=== PATIENT | male | born 1965 | race American Indian/Alaskan Native ===

== ENCOUNTER 2017-03-03 21:32 | Inpatient (IN) | payer MEDICARE ==
[2017-03-03] MEDS ORDERED: ATIVAN ONE (22:05)
[2017-03-03] MEDS ORDERED: ATIVAN IV ONE ×2 (22:08→22:12)
[2017-03-03] MEDS ORDERED: ASPIRIN PO ONE (22:09)
[2017-03-03] MEDS ORDERED: NITRO-BID 2% TP ONE (22:09)
--- NOTE | 2017-03-03 22:27 | Emergency Department Report ---
HPI - General Chief Complaint: Arrhythmia/Palpitations Time Seen by Provider: 03/03/17 22:00 - HPI HPI: Room 18 The patient is a 51-year-old male presented with a chief complaint of palpitations. The patient states approximately one hour prior to arrival he developed palpitations. The patient states the palpitations were associated with chest pain, diaphoresis and shortness of breath. Patient states he he has suffered from "palpitations" in the past which have been actually admitted to anxiety. Per EMS the patient's SVT broke spontaneously with vagal maneuvers. The patient states he still has chest pain despite resolution of palpitations and gives it a score of 5-6/10. The patient was sent from [facility] under a 1013 Location: Chest Duration: [see above] Quality: Pain Severity: 5-6/10 Modifying factors: [see above] Context: [see above] Mode of transportation: [not driving] ED Past Medical Hx - Past Medical History Previous Medical History?: Yes Hx Hypertension: Yes Hx Diabetes: Yes Additional medical history: Anxiety. Depression. Self Harm - Surgical History Past Surgical History?: Yes Additional Surgical History: stimulator lower back - Family History Family history: no significant - Social History Smoking Status: Current Every Day Smoker (1/2 pack per day) Substance Use Type: Alcohol (occasional), Marijuana, Other - Medications Home Medications: Home Medications Medication Instructions Recorded Confirmed Last Taken Type AtorvaSTATin [Lipitor] 20 mg PO QHS 03/03/17 03/03/17 03/03/17 History Doxycycline [Vibramycin] 100 mg PO DAILY 03/03/17 03/03/17 03/03/17 History Fluticasone [Flonase] 1 spray NS QDAY 03/03/17 03/03/17 03/03/17 History Hydrochlorothiazide [HCTZ] 25 mg PO QDAY 03/03/17 03/03/17 03/03/17 History Insulin NPH, Human [NovoLIN N] 100 unit SQ DAILY 03/03/17 03/03/17 03/03/17 History Lisinopril [Zestril] 20 mg PO QDAY 03/03/17 03/03/17 03/03/17 History ED Review of Systems ROS: Stated complaint: SVT Other details as noted in HPI Comment: All other systems reviewed and negative Constitutional: diaphoresis Eyes: denies: eye pain, eye discharge, vision change ENT: denies: ear pain, throat pain Respiratory: shortness of breath Cardiovascular: chest pain, palpitations Endocrine: no symptoms reported Gastrointestinal: denies: abdominal pain, nausea, diarrhea Genitourinary: denies: urgency, dysuria Musculoskeletal: back pain. denies: joint swelling, arthralgia Skin: denies: rash, lesions Neurological: denies: headache, weakness, paresthesias Psychiatric: anxiety. denies: depression Hematological/Lymphatic: denies: easy bleeding, easy bruising Physical Exam - Physical Exam Vital Signs: Vital Signs 03/03/17 03/03/17 21:40 22:06 Temperature 98.2 F Pulse Rate 65 Respiratory 18 18 Rate Blood Pressure 141/94 Blood Pressure 141/92 [Right] O2 Sat by Pulse 99 Oximetry Physical Exam: GENERAL: The patient is well-developed well-nourished male lying on stretcher not appearing to be in acute distress. [] HEENT: Normocephalic. Atraumatic. Extraocular motions are intact. Patient has moist mucous membranes. NECK: Supple. Trachea midline CHEST/LUNGS: Clear to auscultation. There is no respiratory distress noted. HEART/CARDIOVASCULAR: Regular. There is no tachycardia. There is no gallop rub or murmur. ABDOMEN: Abdomen is soft, nontender. Patient has normal bowel sounds. There is no abdominal distention. SKIN: There is no rash. There is no edema. There is no diaphoresis. Patient has jolynn in place from previous surgery on his back which appear to be clean dry and intact NEURO: The patient is awake, alert, and oriented. The patient is cooperative. The patient has normal speech MUSCULOSKELETAL: There is no evidence of acute injury. ED Course Vital Signs 03/03/17 03/03/17 21:40 22:06 Temperature 98.2 F Pulse Rate 65 Respiratory 18 18 Rate Blood Pressure 141/94 Blood Pressure 141/92 [Right] O2 Sat by Pulse 99 Oximetry ED Medical Decision Making - Lab Data Result diagrams: 03/03/17 22:07 03/03/17 22:07 Laboratory Tests 03/03/17 03/03/17 03/03/17 22:07 22:07 22:49 WBC 9.9 RBC 4.83 Hgb 13.8 Hct 41.9 MCV 87 MCH 29 MCHC 33 RDW 14.3 Plt Count 262 Lymph % (Auto) 27.2 [place] % (Auto) 8.1 H Eos % (Auto) 0.4 Baso % (Auto) 0.5 Lymph # 2.7 [place] # 0.8 Eos # 0.0 Baso # 0.0 Seg Neutrophils % 63.8 Seg Neutrophils # 6.3 PT 13.0 INR 0.94 APTT 26.9 Sodium 141 Potassium 4.3 Chloride 98.0 Carbon Dioxide 30 Anion Gap 17 BUN 27 H Creatinine 1.3 Estimated GFR > 60 BUN/Creatinine Ratio 21 Glucose 183 H POC Glucose Calcium 9.9 Total Bilirubin 0.60 AST 71 H ALT 63 H Alkaline Phosphatase 111 Total Creatine Kinase 293 H CK-MB (CK-2) 5.2 H CK-MB (CK-2) Rel Index 1.7 Troponin T < 0.010 Total Protein 7.3 Albumin 4.2 Albumin/Globulin Ratio 1.4 Urine Color Urine Turbidity Urine pH Ur Specific [place] Urine Protein Urine Glucose (UA) Urine Ketones Urine Blood Urine Nitrite Urine Bilirubin Urine Urobilinogen Ur Leukocyte Esterase Urine WBC (Auto) Urine RBC (Auto) U Epithel Cells (Auto) Hyaline Casts Urine Mucus Urine Opiates Screen Urine Methadone Screen Ur Barbiturates Screen Ur Phencyclidine Scrn Ur Amphetamines Screen U Benzodiazepines Scrn Urine Cocaine Screen U Marijuana (THC) Screen Drugs of Abuse Note 03/03/17 03/03/17 03/03/17 23:20 Unknown Unknown WBC RBC Hgb Hct MCV MCH MCHC RDW Plt Count Lymph % (Auto) [place] % (Auto) Eos % (Auto) Baso % (Auto) Lymph # [place] # Eos # Baso # Seg Neutrophils % Seg Neutrophils # PT INR APTT Sodium Potassium Chloride Carbon Dioxide Anion Gap BUN Creatinine Estimated GFR BUN/Creatinine Ratio Glucose POC Glucose 187 H Calcium Total Bilirubin AST ALT Alkaline Phosphatase Total Creatine Kinase CK-MB (CK-2) CK-MB (CK-2) Rel Index Troponin T Total Protein Albumin Albumin/Globulin Ratio Urine Color Yellow Urine Turbidity Clear Urine pH 5.0 Ur Specific [place] 1.023 Urine Protein 30 mg/dl Urine Glucose (UA) 150 Urine Ketones Neg Urine Blood Neg Urine Nitrite Neg Urine Bilirubin Neg Urine Urobilinogen 4.0 Ur Leukocyte Esterase Neg Urine WBC (Auto) < 1.0 Urine RBC (Auto) 2.0 U Epithel Cells (Auto) < 1.0 Hyaline Casts 1 Urine Mucus Few Urine Opiates Screen Presumptive negative Urine Methadone Screen Presumptive negative Ur Barbiturates Screen Presumptive negative Ur Phencyclidine Scrn Presumptive negative Ur Amphetamines Screen Presumptive negative U Benzodiazepines Scrn Presumptive positive Urine Cocaine Screen Presumptive positive U Marijuana (THC) Screen Presumptive negative Drugs of Abuse Note Disclamer - EKG Data -: EKG Interpreted by Me EKG shows normal: sinus rhythm Rate: normal - EKG Data When compared to previous EKG there are: previous EKG unavailable Interpretation: other (no ischemic changes seen) - Radiology Data Radiology results: image reviewed (chest x-ray) interpreted by me: Chest x-ray-no focal infiltrate, no pneumothorax - Differential Diagnosis SVT, ACS, pericarditis, GERD and anxiety Critical care attestation.: If time is entered above; I have spent that time in minutes in the direct care of this critically ill patient, excluding procedure time. ED Disposition Clinical Impression: Chest pain, SVT (supraventricular tachycardia), Cocaine abuse Disposition: 09 OP ADMIT IP TO THIS HOSP Is pt being admited?: Yes Does the pt Need Aspirin: Yes Condition: Fair Instructions: Chest Pain (ED) Referrals: PRIMARY CARE, [Primary Care Provider] - 3-5 Days Time of Disposition: 23:26 (hospitalist paged)
[2017-03-03 22:31] LABS: Basophils % (Auto) 0.5 % (0.0-1.8); Eosinophils % (Auto) 0.4 % (0.0-4.3); Hematocrit 41.9 % (35.5-45.6); Hemoglobin 13.8 gm/dl (11.8-15.2); Mean Corpuscular HGB Conc 33 % (32-34); Mean Corpuscular Hemoglobin 29 pg (28-32); Mean Corpuscular Volume 87 fl (84-94); Platelet Count 262 K/mm3 (140-440); Red Blood Count 4.83 M/mm3 (3.65-5.03); Red Cell Distribution Width 14.3 % (13.2-15.2); White Blood Count 9.9 K/mm3 (4.5-11.0)
[2017-03-03 22:32] LABS: Urine Drugs of Abuse Note Disclamer
[2017-03-03 22:38] LABS: Bilirubin,Urine NEG (Negative); Blood,Urine NEG (Negative); Ketones,Urine NEG (Negative); Leukocyte Esterase,Urine NEG (Negative); Mucus,Urine FEW /HPF; Nitrite,Urine NEG (Negative); WBC,Urine < 1.0 /HPF (0.0-6.0)
[2017-03-03 23:05] LABS: Creatine Kinase MB 5.2 ng/mL (0.0-4.0)
[2017-03-03 23:06] LABS: Alanine Aminotransferase 63 units/L (7-56); Albumin 4.2 g/dL (3.9-5); Albumin/Globulin Ratio 1.4 %; Alkaline Phosphatase 111 units/L (35-129); Anion Gap 17 mmol/L; BUN/Creatinine Ratio 21; Blood Urea Nitrogen 27 mg/dL (9-20); Calcium 9.9 mg/dL (8.4-10.2); Carbon Dioxide 30 mmol/L (22-30); Creatine Kinase 293 units/L (55-170); Glucose 183 mg/dL (75-100); Potassium 4.3 mmol/L (3.6-5.0); Sodium 141 mmol/L (137-145); Total Protein 7.3 g/dL (6.3-8.2)
[2017-03-03 23:23] LABS: INR 0.94 (0.87-1.13)
[2017-03-03 23:24] LABS: Partial Thromboplastin Time 26.9 Sec. (24.2-36.6)
--- NOTE | 2017-03-03 23:43 | History and Physical Report ---
History of Present Illness Date of examination: 03/03/17 History of present illness: 51-year-old man with a history of hypertension, diabetes, anxiety, depression was transferred from her fluids today because he was found to have tachycardia with heart rate in the 160. In the emergency room he was found to be in SVT and converted with vagal maneuver. Patient complain of chest pain associated with his palpitation, chest pain is now resolved. He is at [facility] for suicide ideation Review Of Systems: Constitutional: no weight loss Ears, eyes, nose, mouth and throat: no nasal congestion, no nasal discharge, no sinus pressure, blurry vision, diplopia Neck: No neck pain or rigidity. Cardiovascular: no orthopnea, palpitations Respiratory: No shortness of breath, cough Gastrointestinal: abdominal pain, hematochezia Genitourinary : no dysuria, frequency , hematuria Musculoskeletal: no muscle ache Integumentary: no rash, no pruritis Neurological: no parathesias, focal weakness Endocrine: no cold or heat intolerance, no polyuria or polydipsia Hematologic/Lymphatic: no easy bruising, no easy bleeding, no gland swelling Allergic/Immunologic: no urticaria, no angioedema. PAST MEDICAL HISTORY:hypertension, diabetes, anxiety, depression PAST SURGICAL HISTORY: Back FAILY HISTORY: Diabetes SOCIAL HISTORY: Admits to alcohol, tobacco, drug use Medications and Allergies Allergies Allergy/AdvReac Type Severity Reaction Status Date / Time No Known Allergies Allergy Unverified 03/03/17 21:44 Home Medications Medication Instructions Recorded Confirmed Last Taken Type AtorvaSTATin [Lipitor] 20 mg PO QHS 03/03/17 03/03/17 03/03/17 History Doxycycline [Vibramycin] 100 mg PO DAILY 03/03/17 03/03/17 03/03/17 History Fluticasone [Flonase] 1 spray NS QDAY 03/03/17 03/03/17 03/03/17 History Hydrochlorothiazide [HCTZ] 25 mg PO QDAY 03/03/17 03/03/17 03/03/17 History Insulin NPH, Human [NovoLIN N] 100 unit SQ DAILY 03/03/17 03/03/17 03/03/17 History Lisinopril [Zestril] 20 mg PO QDAY 03/03/17 03/03/17 03/03/17 History Exam - Physical Exam Narrative exam: Gen. appearance: Patient lying in bed in no acute distress HEENT: Normocephalic/atraumatic, pupils equal round reactive to light, extra alkaline movement intact, no scleral icterus, no JVD or thyromegaly or nodule, neck is supple, mucous membrane moist, no erythema or exudate Heart: S1-S2, regular rate and rhythm Lungs: Clear to auscultation bilateral breathing comfortable Abdomen: Positive bowel sounds, nontender, nondistended, no organomegaly Extremities: No edema, cyanosis, clubbing Neuro:: Oriented 3 , cranial nerves II-12 intact, speech, motor intact Skin: No rash, nodules, warm dry - Constitutional Vitals: Temp Pulse Resp BP Pulse Ox 98.2 F 59 L 13 119/66 99 03/03/17 21:40 03/03/17 23:15 03/03/17 23:15 03/03/17 23:15 03/03/17 23:15 Results - Labs CBC & Chem 7: 03/03/17 22:07 03/03/17 22:07 Labs: Abnormal lab results 03/03/17 03/03/17 03/03/17 Range/Units 22:07 22:07 23:20 [place] % (Auto) 8.1 H (0.0-7.3) % BUN 27 H (9-20) mg/dL Glucose 183 H (75-100) mg/dL POC Glucose 187 H (70-105) AST 71 H (5-40) units/L ALT 63 H (7-56) units/L Total Creatine Kinase 293 H (55-170) units/L CK-MB (CK-2) 5.2 H (0.0-4.0) ng/mL - Imaging and Cardiology EKG: image reviewed Chest x-ray: image reviewed Assessment and Plan Assessment SVT associated with chest pain Side ideation Hypertension Diabetes Anxiety Depression Plan Admit to medicine Check cardiac enzymes, consult cardiology Check fingersticks and initiate insulin sliding scale Continue appropriate outpatient medication DVT prophylaxis
[2017-03-04] MEDS ORDERED: TYLENOL PO PRN (00:47)
[2017-03-04] MEDS ORDERED: ZOFRAN IV PRN (00:47)
[2017-03-04] MEDS ORDERED: MILK OF MAGNESIA PO PRN (00:47)
[2017-03-04] MEDS ORDERED: DULCOLAX PR PRN (00:47)
[2017-03-04] MEDS ORDERED: D50W (25GM) Syringe IV PRN (00:53)
[2017-03-04] MEDS ORDERED: NACL 0.9% 1000 ML 1,000 ML IV SCH (01:00)
[2017-03-04 01:45] LABS: Creatine Kinase MB 4.7 ng/mL (0.0-4.0)
[2017-03-04 01:48] LABS: Creatine Kinase 256 units/L (55-170)
[2017-03-04 07:06] LABS: Creatine Kinase MB 4.3 ng/mL (0.0-4.0)
[2017-03-04 07:08] LABS: Creatine Kinase 223 units/L (55-170)
--- NOTE | 2017-03-04 07:13 | XRay Report ---
Single view chest: History: Dysrhythmia. Findings: Again many. Trachea is midline. No consolidation, pneumothorax or pleural effusion. Impression: No acute cardiopulmonary findings.
[2017-03-04] MEDS: NOVOLOG SUB-Q SCH ×4 (10:16→22:30)
[2017-03-04] MEDS: PERCOCET 5/325 PO PRN ×3 (10:25→20:17)
[2017-03-04] MEDS: HCTZ PO SCH (10:26)
[2017-03-04] MEDS: VIBRAMYCIN PO SCH (10:26)
[2017-03-04] MEDS: FLONASE NS SCH ×2 (10:27→10:28)
[2017-03-04] MEDS: LOVENOX SUB-Q SCH (10:27)
[2017-03-04] MEDS: ZESTRIL PO SCH (10:28)
--- NOTE | 2017-03-04 11:51 | Consultation ---
History of Present Illness Consult date: 03/04/17 Requesting physician: GAIL SETH Consult reason: chest pain, other (SVT) History of present illness: The patient is a 51-year-old male with a past medical history significant for HTN, DM, HLP, palpitations, depression/suicidal ideation and anxiety. He is previously unknown to our service. He presented with a chief complaint of palpitations. The patient states approximately one hour prior to arrival he developed palpitations. The patient states the palpitations were associated with chest pain, diaphoresis and shortness of breath. Patient states he he has suffered from "palpitations" in the past which have been related to "anxiety" and "anxiety attacks". The pt was noted to be in SVT, HR 170s, upon EMS arrival. Per EMS the patient's SVT broke spontaneously with vagal maneuvers. The patient was sent from [facility] under a 1013. On evaluation, the pt denies any complaints and remains in SR. Past History Past Medical History: diabetes, hypertension, hyperlipidemia, other (SVT) Past Surgical History: Other (recent TENS unit removal from left flank) Social history: smoking. denies: alcohol abuse, prescription drug abuse Medications and Allergies Allergies Allergy/AdvReac Type Severity Reaction Status Date / Time No Known Allergies Allergy Unverified 03/03/17 21:44 Home Medications Medication Instructions Recorded Confirmed Last Taken Type AtorvaSTATin [Lipitor] 20 mg PO QHS 03/03/17 03/03/17 03/03/17 History Doxycycline [Vibramycin] 100 mg PO DAILY 03/03/17 03/03/17 03/03/17 History Fluticasone [Flonase] 1 spray NS QDAY 03/03/17 03/03/17 03/03/17 History Hydrochlorothiazide [HCTZ] 25 mg PO QDAY 03/03/17 03/03/17 03/03/17 History Insulin NPH, Human [NovoLIN N] 100 unit SQ DAILY 03/03/17 03/03/17 03/03/17 History Lisinopril [Zestril] 20 mg PO QDAY 03/03/17 03/03/17 03/03/17 History Active Meds: Active Medications Acetaminophen (Tylenol) 650 mg PO Q4H PRN PRN Reason: Pain MILD(1-3)/Fever >100.5/URIOSTEGUI Atorvastatin Calcium (Lipitor) 20 mg PO QHS [facility] Bisacodyl (Dulcolax) 10 mg AL QDAY PRN PRN Reason: Constipation unrelieved by MOM Dextrose (D50w (25gm) Syringe) 50 ml IV PRN PRN PRN Reason: Hypoglycemia Doxycycline Hyclate (Vibramycin) 100 mg PO DAILY [facility] Last Admin: 03/04/17 10:26 Dose: 100 mg Enoxaparin Sodium (Lovenox) 40 mg SUB-Q QDAY [facility] Last Admin: 03/04/17 10:27 Dose: 40 mg Fluticasone Propionate (Flonase) 50 mcg NS QDAY [facility] Last Admin: 03/04/17 10:28 Dose: Not Given Hydrochlorothiazide (Hctz) 25 mg PO QDAY [facility] Last Admin: 03/04/17 10:26 Dose: 25 mg Sodium Chloride (Nacl 0.9% 1000 Ml) 1,000 mls @ 100 mls/hr IV DIRECT [facility] Influenza Virus Vaccine Quadrival (Fluarix Quad [id number](36 Mos+)) 0.5 ml IM .ONCE ONE Stop: 03/04/17 12:01 Insulin Aspart (Novolog) 0 units SUB-Q ACHS [facility] PRN Reason: Protocol Last Admin: 03/04/17 10:16 Dose: Not Given Lisinopril (Zestril) 20 mg PO QDAY [facility] Last Admin: 03/04/17 10:28 Dose: Not Given Magnesium Hydroxide (Milk Of Magnesia) 30 ml PO Q4H PRN PRN Reason: Constipation Ondansetron HCl (Zofran) 4 mg IV Q8H PRN PRN Reason: N/V unrelieved by Reglan Oxycodone/Acetaminophen (Percocet 5/325) 1 tab PO Q6H PRN PRN Reason: Pain, Moderate (4-6) Last Admin: 03/04/17 10:25 Dose: 1 tab Pneumococcal Polyvalent Vaccine (Pneumovax 23) 0.5 ml IM .ONCE ONE Stop: 03/04/17 12:01 Review of Systems Constitutional: no weight loss, no weight gain, no fever, no chills, no sweats Ears, nose, mouth and throat: no ear pain, no nose pain, no sinus pressure, no sinus pain Cardiovascular: chest pain, palpitations, rapid/irregular heart beat, high blood pressure, no orthopnea, no edema, no syncope, no lightheadedness, no shortness of breath, no dyspnea on exertion, no leg edema Respiratory: no cough, no shortness of breath, no dyspnea on exertion, no congestion, no wheezing, no pain on inspiration Gastrointestinal: no abdominal pain, no nausea, no vomiting, no diarrhea, no constipation, no change in bowel habits Genitourinary Male: no dysuria, no hematuria, no flank pain, no discharge, no urinary frequency, no urinary hesitancy Musculoskeletal: no neck stiffness, no neck pain, no shooting arm pain, no arm numbness/tingling, no low back pain, no shooting leg pain, no leg numbness/ tingling, no redness of joints Integumentary: no rash, no pruritis, no redness, no sores, no wounds Neurological: no head injury, no paralysis, no weakness, no parathesias, no numbness, no tingling, no seizures, no syncope Psychiatric: anxiety, depression Endocrine: no cold intolerance, no heat intolerance Hematologic/Lymphatic: no easy bruising, no easy bleeding Allergic/Immunologic: no urticaria, no wheezing, no persistent infections Physical Examination Vital Signs Temp Pulse Resp BP Pulse Ox 98.2 F 65 18 141/92 99 03/03/17 21:40 03/03/17 21:40 03/03/17 21:40 03/03/17 21:40 03/03/17 21:40 General appearance: no acute distress HEENT: Positive: PERRL, Normocephaly, Mucus Membranes Moist Neck: Positive: neck supple, trachea midline Cardiac: Positive: Reg Rate and Rhythm, S1/S2 Lungs: Positive: clear to auscultation Neuro: Positive: Grossly Intact Abdomen: Positive: Unremarkable, Soft, Active Bowel Sounds. Negative: Tender Skin: Positive: Clear, Other (left flank surgical site with jolynn in place). Negative: Rash Musculoskeletal: No Fluid Collection, No Pain, Normal Range of Motion Extremities: Absent: edema Results 03/03/17 22:07 03/03/17 22:07 Cardiac Enzymes 03/04/17 03/04/17 Range/Units 01:06 05:58 CK-MB (CK-2) 4.7 H 4.3 H (0.0-4.0) ng/mL - Imaging and Cardiology Echo: pending EKG: image reviewed EKG interpretations - Telemetry EKG Rhythm: Sinus Rhythm - EKG Sinus rhythms and dysrhythmias: sinus rhythm Assessment and Plan Assessment: Paroxysmal SVT --> SR; troponins negative for AMI; ECG following conversion with NAF; thyroid panel WNL; electrolytes WNL HTN HLP DM Tobacco use - cessation encouraged Cocaine use Anxiety / depression / suicidal ideation - pt is on 1013 Plan: Obtain echo. Toxicology panel positive for cocaine. Cessation encouraged. Initiate PO cardizem. Avoid BB in setting of cocaine use as unppposed alpha stimulation is a concern. Pt reports recent LHC with "normal arteries" at [facility]. Will attempt to obtain medical records. Assessment and plan reviewed with pt at bedside. The patient has been seen in conjunction with Dr. Stewart who agrees with the assessment and plan of care.
[2017-03-04] MEDS ORDERED: Fluarix Quad 2017-2018(36 MOS+) IM ONE (12:00)
[2017-03-04] MEDS ORDERED: PNEUMOVAX 23 IM ONE (12:00)
[2017-03-04] MEDS: ATIVAN PO PRN ×2 (12:14→20:17)
[2017-03-04] MEDS: HABITROL TD SCH (12:33)
[2017-03-04] MEDS ORDERED: LOPRESSOR PO SCH (13:00)
--- NOTE | 2017-03-04 14:08 | Progress Note ---
Assessment and Plan Assessment and plan: 51-year-old -[place] man with past medical history significant for anxiety, hypertension, hyperlipidemia, diabetes mellitus presented to the emergency department complaining of palpitations and chest pain associated with diaphoresis. In the emergency department patient was having SVT with heart rate of 170's and broke spontaneously with vagal maneuver. SVT, chest pain to rule out ACS - Patient is started on by mouth Cardizem, rate controlled - Troponins were negative, EKG normal sinus rhythm - Cardiology consulted and recommended to get echo - Patient has recent cardiac cath at [facility] and will get records Depression/suicidal ideation - Mental health consulted, patient is on 1013 Diabetes mellitus -Patient is on sliding scale insulin - We will adjust insulin as needed Hypertension - Continue home medications Disposition - Discharge back to [facility] once stable History Interval history: Patient was seen and evaluated this morning, he denied suicidal ideation. Patient complains chronic lower back pain, left-sided chest pain. No shortness of breath. Hospitalist Physical - Physical exam Narrative exam: Not in cardiopulmonary distress. The patient appeared well nourished and normally developed. Vital signs as documented. Head exam is unremarkable. No scleral icterus . Neck is without jugular venous distension, thyromegaly, or carotid bruits. Lungs are clear to auscultation. Cardiac exam reveals regular rate and Rhythm. Abdominal exam reveals normal bowel sounds, no masses. Extremities are nonedematous and both femoral and pedal pulses are normal. [employer]: Alert and oriented 3. - Constitutional Vitals: Temp Pulse Resp BP Pulse Ox 98.6 F 60 18 120/80 100 03/04/17 13:40 03/04/17 13:40 03/04/17 13:40 03/04/17 13:40 03/04/17 13:40 General appearance: Present: no acute distress Results - Labs CBC & Chem 7: 03/03/17 22:07 03/03/17 22:07 Labs: Laboratory Last Values WBC 9.9 K/mm3 (4.5-11.0) 03/03/17 22:07 RBC 4.83 M/mm3 (3.65-5.03) 03/03/17 22:07 Hgb 13.8 gm/dl (11.8-15.2) 03/03/17 22:07 Hct 41.9 % (35.5-45.6) 03/03/17 22:07 MCV 87 fl (84-94) 03/03/17 22:07 MCH 29 pg (28-32) 03/03/17 22:07 MCHC 33 % (32-34) 03/03/17 22:07 RDW 14.3 % (13.2-15.2) 03/03/17 22:07 Plt Count 262 K/mm3 (140-440) 03/03/17 22:07 Lymph % (Auto) 27.2 % (13.4-35.0) 03/03/17 22:07 [place] % (Auto) 8.1 % (0.0-7.3) H 03/03/17 22:07 Eos % (Auto) 0.4 % (0.0-4.3) 03/03/17 22:07 Baso % (Auto) 0.5 % (0.0-1.8) 03/03/17 22:07 Lymph # 2.7 K/mm3 (1.2-5.4) 03/03/17 22:07 [place] # 0.8 K/mm3 (0.0-0.8) 03/03/17 22:07 Eos # 0.0 K/mm3 (0.0-0.4) 03/03/17 22:07 Baso # 0.0 K/mm3 (0.0-0.1) 03/03/17 22:07 Seg Neutrophils % 63.8 % (40.0-70.0) 03/03/17 22:07 Seg Neutrophils # 6.3 K/mm3 (1.8-7.7) 03/03/17 22:07 PT 13.0 Sec. (12.2-14.9) 03/03/17 22:49 INR 0.94 (0.87-1.13) 03/03/17 22:49 APTT 26.9 Sec. (24.2-36.6) 03/03/17 22:49 Sodium 141 mmol/L (137-145) 03/03/17 22:07 Potassium 4.3 mmol/L (3.6-5.0) 03/03/17 22:07 Chloride 98.0 mmol/L (98-107) 03/03/17 22:07 Carbon Dioxide 30 mmol/L (22-30) 03/03/17 22:07 Anion Gap 17 mmol/L 03/03/17 22:07 BUN 27 mg/dL (9-20) H 03/03/17 22:07 Creatinine 1.3 mg/dL (0.8-1.5) 03/03/17 22:07 Estimated GFR > 60 ml/min 03/03/17 22:07 BUN/Creatinine Ratio 21 % 03/03/17 22:07 Glucose 183 mg/dL (75-100) H 03/03/17 22:07 POC Glucose 109 (70-105) H 03/04/17 10:17 Calcium 9.9 mg/dL (8.4-10.2) 03/03/17 22:07 Magnesium 1.70 mg/dL (1.7-2.3) 03/03/17 22:49 Total Bilirubin 0.60 mg/dL (0.1-1.2) 03/03/17 22:07 AST 71 units/L (5-40) H 03/03/17 22:07 ALT 63 units/L (7-56) H 03/03/17 22:07 Alkaline Phosphatase 111 units/L (35-129) 03/03/17 22:07 Total Creatine Kinase 223 units/L (55-170) H 03/04/17 05:58 CK-MB (CK-2) 4.3 ng/mL (0.0-4.0) H 03/04/17 05:58 CK-MB (CK-2) Rel Index 1.9 (0-4) 03/04/17 05:58 Troponin T < 0.010 ng/mL (0.00-0.029) 03/04/17 05:58 Total Protein 7.3 g/dL (6.3-8.2) 03/03/17 22:07 Albumin 4.2 g/dL (3.9-5) 03/03/17 22:07 Albumin/Globulin Ratio 1.4 % 03/03/17 22:07 TSH 0.737 mlU/mL (0.270-4.200) 03/03/17 22:49 Free T4 1.25 ng/dL (0.76-1.46) 03/03/17 22:49 Urine Color Yellow (Yellow) 03/03/17 Unknown Urine Turbidity Clear (Clear) 03/03/17 Unknown Urine pH 5.0 (5.0-7.0) 03/03/17 Unknown Ur Specific [place] 1.023 (1.003-1.030) 03/03/17 Unknown Urine Protein 30 mg/dl mg/dL (Negative) 03/03/17 Unknown Urine Glucose (UA) 150 mg/dL (Negative) 03/03/17 Unknown Urine Ketones Neg mg/dL (Negative) 03/03/17 Unknown Urine Blood Neg (Negative) 03/03/17 Unknown Urine Nitrite Neg (Negative) 03/03/17 Unknown Urine Bilirubin Neg (Negative) 03/03/17 Unknown Urine Urobilinogen 4.0 mg/dL (<2.0) 03/03/17 Unknown Ur Leukocyte Esterase Neg (Negative) 03/03/17 Unknown Urine WBC (Auto) < 1.0 /HPF (0.0-6.0) 03/03/17 Unknown Urine RBC (Auto) 2.0 /HPF (0.0-6.0) 03/03/17 Unknown U Epithel Cells (Auto) < 1.0 /HPF (0-13.0) 03/03/17 Unknown Hyaline Casts 1 /LPF 03/03/17 Unknown Urine Mucus Few /HPF 03/03/17 Unknown Urine Opiates Screen Presumptive negative 03/03/17 Unknown Urine Methadone Screen Presumptive negative 03/03/17 Unknown Ur Barbiturates Screen Presumptive negative 03/03/17 Unknown Ur Phencyclidine Scrn Presumptive negative 03/03/17 Unknown Ur Amphetamines Screen Presumptive negative 03/03/17 Unknown U Benzodiazepines Scrn Presumptive positive 03/03/17 Unknown Urine Cocaine Screen Presumptive positive 03/03/17 Unknown U Marijuana (THC) Screen Presumptive negative 03/03/17 Unknown Drugs of Abuse Note Disclamer 03/03/17 Unknown
[2017-03-04] MEDS: CARDIZEM PO SCH ×3 (16:48→22:30)
[2017-03-05] MEDS ORDERED: AMBIEN PO PRN (01:25)
[2017-03-05] MEDS: PERCOCET 5/325 PO PRN ×2 (05:59→12:29)
[2017-03-05] MEDS: ATIVAN PO PRN (06:01)
[2017-03-05 06:35] LABS: Basophils % (Auto) 0.6 % (0.0-1.8); Eosinophils % (Auto) 0.8 % (0.0-4.3); Hematocrit 37.9 % (35.5-45.6); Hemoglobin 12.8 gm/dl (11.8-15.2); Mean Corpuscular HGB Conc 34 % (32-34); Mean Corpuscular Hemoglobin 29 pg (28-32); Mean Corpuscular Volume 87 fl (84-94); Platelet Count 217 K/mm3 (140-440); Red Blood Count 4.37 M/mm3 (3.65-5.03); Red Cell Distribution Width 14.3 % (13.2-15.2)
[2017-03-05 06:51] LABS: Anion Gap 16 mmol/L; Calcium 8.9 mg/dL (8.4-10.2); Carbon Dioxide 29 mmol/L (22-30); Chloride 103.2 mmol/L (98-107); Glucose 138 mg/dL (75-100); Potassium 3.9 mmol/L (3.6-5.0); Sodium 144 mmol/L (137-145)
[2017-03-05 07:00] LABS: BUN/Creatinine Ratio 16; Blood Urea Nitrogen 16 mg/dL (9-20)
[2017-03-05] MEDS: NOVOLOG SUB-Q SCH ×2 (08:34→11:11)
[2017-03-05] MEDS: HCTZ PO SCH (09:16)
[2017-03-05] MEDS: VIBRAMYCIN PO SCH (09:17)
[2017-03-05] MEDS: CARDIZEM PO SCH (09:17)
[2017-03-05] MEDS: LOVENOX SUB-Q SCH (09:17)
[2017-03-05] MEDS: FLONASE NS SCH (09:18)
[2017-03-05] MEDS: HABITROL TD SCH (09:18)
[2017-03-05] MEDS: ZESTRIL PO SCH (09:18)
--- NOTE | 2017-03-05 10:31 | Progress Note ---
Assessment and Plan Assessment and plan: 51-year-old -[place] man with past medical history significant for anxiety, hypertension, hyperlipidemia, diabetes mellitus presented to the emergency department complaining of palpitations and chest pain associated with diaphoresis. In the emergency department patient was having SVT with heart rate of 170's and broke spontaneously with vagal maneuver. SVT, chest pain to rule out ACS - Patient is started on by mouth Cardizem, rate controlled - Troponins were negative, EKG normal sinus rhythm - Cardiology consulted and recommended to get echo - Patient has recent cardiac cath at [facility] and will get records Depression/suicidal ideation - Mental health consulted, patient is on 1013 Diabetes mellitus -Patient is on sliding scale insulin - We will adjust insulin as needed Hypertension - Continue home medications Disposition - Discharge back to [facility] once stable Hospitalist Physical - Constitutional Vitals: Temp Pulse Resp BP Pulse Ox 98.0 F 64 20 131/90 98 03/05/17 08:50 03/05/17 10:00 03/05/17 10:00 03/05/17 08:50 03/05/17 10:18 General appearance: Present: no acute distress Results - Labs CBC & Chem 7: 03/05/17 05:53 03/05/17 05:53 Labs: Laboratory Last Values WBC 10.0 K/mm3 (4.5-11.0) 03/05/17 05:53 RBC 4.37 M/mm3 (3.65-5.03) 03/05/17 05:53 Hgb 12.8 gm/dl (11.8-15.2) 03/05/17 05:53 Hct 37.9 % (35.5-45.6) 03/05/17 05:53 MCV 87 fl (84-94) 03/05/17 05:53 MCH 29 pg (28-32) 03/05/17 05:53 MCHC 34 % (32-34) 03/05/17 05:53 RDW 14.3 % (13.2-15.2) 03/05/17 05:53 Plt Count 217 K/mm3 (140-440) 03/05/17 05:53 Lymph % (Auto) 29.1 % (13.4-35.0) 03/05/17 05:53 [place] % (Auto) 8.2 % (0.0-7.3) H 03/05/17 05:53 Eos % (Auto) 0.8 % (0.0-4.3) 03/05/17 05:53 Baso % (Auto) 0.6 % (0.0-1.8) 03/05/17 05:53 Lymph # 2.9 K/mm3 (1.2-5.4) 03/05/17 05:53 [place] # 0.8 K/mm3 (0.0-0.8) 03/05/17 05:53 Eos # 0.1 K/mm3 (0.0-0.4) 03/05/17 05:53 Baso # 0.1 K/mm3 (0.0-0.1) 03/05/17 05:53 Seg Neutrophils % 61.3 % (40.0-70.0) 03/05/17 05:53 Seg Neutrophils # 6.1 K/mm3 (1.8-7.7) 03/05/17 05:53 PT 13.0 Sec. (12.2-14.9) 03/03/17 22:49 INR 0.94 (0.87-1.13) 03/03/17 22:49 APTT 26.9 Sec. (24.2-36.6) 03/03/17 22:49 Sodium 144 mmol/L (137-145) 03/05/17 05:53 Potassium 3.9 mmol/L (3.6-5.0) 03/05/17 05:53 Chloride 103.2 mmol/L (98-107) 03/05/17 05:53 Carbon Dioxide 29 mmol/L (22-30) 03/05/17 05:53 Anion Gap 16 mmol/L 03/05/17 05:53 BUN 16 mg/dL (9-20) 03/05/17 05:53 Creatinine 1.0 mg/dL (0.8-1.5) 03/05/17 05:53 Estimated GFR > 60 ml/min 03/05/17 05:53 BUN/Creatinine Ratio 16 % 03/05/17 05:53 Glucose 138 mg/dL (75-100) H 03/05/17 05:53 POC Glucose 186 (70-105) H 03/05/17 08:59 Calcium 8.9 mg/dL (8.4-10.2) 03/05/17 05:53 Magnesium 1.70 mg/dL (1.7-2.3) 03/03/17 22:49 Total Bilirubin 0.60 mg/dL (0.1-1.2) 03/03/17 22:07 AST 71 units/L (5-40) H 03/03/17 22:07 ALT 63 units/L (7-56) H 03/03/17 22:07 Alkaline Phosphatase 111 units/L (35-129) 03/03/17 22:07 Total Creatine Kinase 223 units/L (55-170) H 03/04/17 05:58 CK-MB (CK-2) 4.3 ng/mL (0.0-4.0) H 03/04/17 05:58 CK-MB (CK-2) Rel Index 1.9 (0-4) 03/04/17 05:58 Troponin T < 0.010 ng/mL (0.00-0.029) 03/04/17 05:58 Total Protein 7.3 g/dL (6.3-8.2) 03/03/17 22:07 Albumin 4.2 g/dL (3.9-5) 03/03/17 22:07 Albumin/Globulin Ratio 1.4 % 03/03/17 22:07 TSH 0.737 mlU/mL (0.270-4.200) 03/03/17 22:49 Free T4 1.25 ng/dL (0.76-1.46) 03/03/17 22:49 Urine Color Yellow (Yellow) 03/03/17 Unknown Urine Turbidity Clear (Clear) 03/03/17 Unknown Urine pH 5.0 (5.0-7.0) 03/03/17 Unknown Ur Specific [place] 1.023 (1.003-1.030) 03/03/17 Unknown Urine Protein 30 mg/dl mg/dL (Negative) 03/03/17 Unknown Urine Glucose (UA) 150 mg/dL (Negative) 03/03/17 Unknown Urine Ketones Neg mg/dL (Negative) 03/03/17 Unknown Urine Blood Neg (Negative) 03/03/17 Unknown Urine Nitrite Neg (Negative) 03/03/17 Unknown Urine Bilirubin Neg (Negative) 03/03/17 Unknown Urine Urobilinogen 4.0 mg/dL (<2.0) 03/03/17 Unknown Ur Leukocyte Esterase Neg (Negative) 03/03/17 Unknown Urine WBC (Auto) < 1.0 /HPF (0.0-6.0) 03/03/17 Unknown Urine RBC (Auto) 2.0 /HPF (0.0-6.0) 03/03/17 Unknown U Epithel Cells (Auto) < 1.0 /HPF (0-13.0) 03/03/17 Unknown Hyaline Casts 1 /LPF 03/03/17 Unknown Urine Mucus Few /HPF 03/03/17 Unknown Urine Opiates Screen Presumptive negative 03/03/17 Unknown Urine Methadone Screen Presumptive negative 03/03/17 Unknown Ur Barbiturates Screen Presumptive negative 03/03/17 Unknown Ur Phencyclidine Scrn Presumptive negative 03/03/17 Unknown Ur Amphetamines Screen Presumptive negative 03/03/17 Unknown U Benzodiazepines Scrn Presumptive positive 03/03/17 Unknown Urine Cocaine Screen Presumptive positive 03/03/17 Unknown U Marijuana (THC) Screen Presumptive negative 03/03/17 Unknown Drugs of Abuse Note Disclamer 03/03/17 Unknown
--- NOTE | 2017-03-05 11:34 | Progress Note ---
Assessment and Plan Assessment: Paroxysmal SVT --> SR; troponins negative for AMI; ECG following conversion with NAF; thyroid panel WNL; electrolytes WNL HTN HLP DM Tobacco use - cessation encouraged Cocaine use Anxiety / depression / suicidal ideation - pt is on 1013 Plan: Echo reviewed - EF 55-60%. Records from [place] reviewed - pt underwent LHC in 11/2010 which showed mild luminal irregularities, EF 50%. Toxicology panel positive for cocaine. Cessation encouraged. Cont PO cardizem. Currently stable cardiac status. Pt may discharge home from cardiology standpoint. Recommend follow up in our office with Monique Wagner NP, within 1-2 weeks of hospital discharge ([phone]). Assessment and plan reviewed with pt at bedside. The patient has been seen in conjunction with Dr. Stewart who agrees with the assessment and plan of care. Subjective Date of service: 03/05/17 Principal diagnosis: SVT Interval history: Pt ambulating around room without difficulty. VSS. remained in SR overnight with no arrhythmias noted. Pt states he is ready to go home. Objective Last Vital Signs Temp 98.0 F 03/05/17 08:50 Pulse 64 03/05/17 10:00 Resp 20 03/05/17 10:00 BP 131/90 03/05/17 08:50 Pulse Ox 98 03/05/17 10:18 - Physical Examination HEENT: Positive: PERRL, Normocephaly, Mucus Membranes Moist Neck: Positive: neck supple, trachea midline Cardiac: Positive: Reg Rate and Rhythm, S1/S2 Lungs: Positive: clear to auscultation Neuro: Positive: Grossly Intact Abdomen: Positive: Unremarkable, Soft, Active Bowel Sounds. Negative: Tender Skin: Positive: Clear, Other (left flank surgical site with jolynn in place). Negative: Rash Musculoskeletal: No Fluid Collection, No Pain, Normal Range of Motion Extremities: Absent: edema - Labs and Meds CBC 03/05/17 Range/Units 05:53 WBC 10.0 (4.5-11.0) K/mm3 RBC 4.37 (3.65-5.03) M/mm3 Hgb 12.8 (11.8-15.2) gm/dl Hct 37.9 (35.5-45.6) % Plt Count 217 (140-440) K/mm3 Lymph # 2.9 (1.2-5.4) K/mm3 [place] # 0.8 (0.0-0.8) K/mm3 Eos # 0.1 (0.0-0.4) K/mm3 Baso # 0.1 (0.0-0.1) K/mm3 Comprehensive Metabolic Panel 03/05/17 Range/Units 05:53 Sodium 144 (137-145) mmol/L Potassium 3.9 (3.6-5.0) mmol/L Chloride 103.2 (98-107) mmol/L Carbon Dioxide 29 (22-30) mmol/L BUN 16 (9-20) mg/dL Creatinine 1.0 (0.8-1.5) mg/dL Glucose 138 H (75-100) mg/dL Calcium 8.9 (8.4-10.2) mg/dL - Imaging and Cardiology EKG: image reviewed Echo: pending - EKG Sinus rhythms and dysrhythmias: sinus rhythm
--- NOTE | 2017-03-05 15:25 | Query- Chest Pain ---
Dear Corry Date: 03/05/17 Network Contractor/CDS:___[employer] Phone#:___[phone] Exercise your independent professional judgment when responding to query. Questions asked do not imply a particular answer is desired or expected. We greatly appreciate your clarification on this issue. Clinical Documentation States: 51 year old male was admitted on 03/03/17 The progress note (Dr. Wheatley 03/05/17) states " presented to the emergency department complaining of palpitations and chest pain associated with diaphoresis SVT, chest pain to rule out ACS - Patient is started on by mouth Cardizem, rate controlled - Troponins were negative, EKG normal sinus rhythm - Cardiology consulted and recommended to get echo - Patient has recent cardiac cath at [facility] and will get records " The cardiology progress note ( Janay Spangler 03/05/17) states " Paroxysmal SVT -- > SR; troponins negative for AMI; ECG following conversion with NAF; thyroid panel WNL; electrolytes WNL Cocaine use Anxiety / depression / suicidal ideation - pt is on 1013 Echo reviewed - EF 55-60%. Records from [place] reviewed - pt underwent LHC in 11/2010 which showed mild luminal irregularities, EF 50%. Toxicology panel positive for cocaine " Please document the etiology of Chest Pain: [ ] Myocardial Infarction [ ] Pneumonia [ ] Mediastinitis [ x] Costochondritis [ ] Pulmonary Embolism [ ] Coronary Artery Disease [ ] GERD [ ] Other: [ ] Comment/Explanation: Present on Admission: [ x] Yes (Y) [ ] Clinically undeterminable (W) [ ] No(N) Please document response in your Progress Notes and/or Discharge Summary and indicate if the condition was present on admission. MTDD
--- NOTE | 2017-03-05 15:26 | Discharge Summary ---
Providers - Providers Date of Admission: 03/03/17 23:50 Attending physician: ARLETH CLARKE MD 03/04/17 00:47 Consult to Physician [CONS] Routine Consulting Provider: AZ RUIZ Reason For Exam: svt/cp Place consult to:: [facility] Notified:: rich Was contact made?: Yes Time called:: 08:43 03/04/17 14:31 Consult to Mental Health [CONS] Routine Reason For Exam: 1013 Place consult to:: ezequiel Notified:: ezequiel Primary care physician: TEA FERRO Hospitalization Condition: Fair Hospital course: 51-year-old -[place] man with past medical history significant for anxiety, hypertension, hyperlipidemia, diabetes mellitus presented to the emergency department complaining of palpitations and chest pain associated with diaphoresis. In the emergency department patient was having SVT with heart rate of 170's and broke spontaneously with vagal maneuver. SVT, chest pain to rule out ACS - Patient is started on by mouth Cardizem, rate controlled - Troponins were negative, EKG normal sinus rhythm - Cardiology consulted and recommended to get echo - Patient has recent cardiac cath at [facility] and will get records Depression/suicidal ideation - Mental health consulted, patient is on 1013 Diabetes mellitus -Patient is on sliding scale insulin - We will adjust insulin as needed Hypertension - Continue home medications Disposition - Discharge back to [facility] once stable Disposition: DC-01 TO HOME OR SELFCARE Time spent for discharge: 33 minutes Core Measure Documentation - Palliative Care Palliative Care/ Comfort Measures: Not Applicable - Core Measures Any of the following diagnoses?: none Exam - Constitutional Vitals: Temp Pulse Resp BP Pulse Ox 98.3 F 64 20 127/76 98 03/05/17 12:25 03/05/17 10:00 03/05/17 12:29 03/05/17 12:25 03/05/17 10:18 General appearance: Present: no acute distress, well-nourished - EENT Eyes: Present: PERRL ENT: hearing intact, clear oral mucosa - Neck Neck: Present: supple, normal ROM - Respiratory Respiratory effort: normal Respiratory: bilateral: CTA - Cardiovascular Heart Sounds: Present: S1 & S2. Absent: rub, click - Extremities Extremities: pulses symmetrical, No edema Peripheral Pulses: within normal limits - Abdominal General gastrointestinal: Present: soft, non-tender, non-distended, normal bowel sounds Male genitourinary: Present: normal - Integumentary Integumentary: Present: clear, warm, dry - Musculoskeletal Musculoskeletal: gait normal, strength equal bilaterally - Psychiatric Psychiatric: appropriate mood/affect, intact judgment & insight - Neurologic Neurologic: CNII-XII intact, moves all extremities Plan Follow up with: PRIMARY CARE,MD [Referring] - 3-5 Days Prescriptions: AtorvaSTATin [Lipitor] 20 mg PO QHS #30 tablet Diltiazem [Cardizem] 30 mg PO BID #60 tablet Fluticasone [Flonase] 1 spray NS QDAY #1 bottle Hydrochlorothiazide [HCTZ] 25 mg PO QDAY #30 tablet Lisinopril [Zestril TAB] 20 mg PO QDAY #30 tablet Nicotine [Habitrol] 21 mg TD QDAY #30 patch
[2017-03-05 15:49] VITALS: BP 119/77
--- NOTE | 2017-03-05 16:12 | Consultation ---
History of Present Illness - Reason for Consult Consult date: 03/05/17 Reason for consult: Mental Health Evaluation Requesting physician: ROCK BLAS - Chief Complaint Chief complaint: "I was upset with my " - History of Present Psychiatric Illness The patient is a 51-year-old male presented with a chief complaint of palpitations. Today patient is calm and cooperative during the assessment. He stated that he was brought to [employer] because he stated, "I want it all to be over." He stated that he got into a argument with his and he left the house. He stated that he had been drinking prior to making the statement about wanting it all to be over. He stated that he was upset at the time and didn't want to "." Per his Margi Palafox, she stated that he was upset at the time and don't believe that he wanted to kill himself. She stated that the patient does not have a hx of suicidal attempts in the past. The patient stated that he was dx with anxiety by his PCP. He stated that he take Xanax. He denies SI/HI's, AVH's, and depression. He denies sleep disturbance and a poor appetite. He denies an alcohol addition, but admit to using recreational drugs. Patient positive for cocaine. He stated that his PCP manage his treatment for his Anxiety DO. He stated that he would like a outpatient rehab services for the recreational drug use. Medications and Allergies Allergies Allergy/AdvReac Type Severity Reaction Status Date / Time No Known Allergies Allergy Unverified 03/03/17 21:44 Home Medications Medication Instructions Recorded Confirmed Last Taken Type AtorvaSTATin [Lipitor] 20 mg PO QHS #30 tablet 03/05/17 Unknown Rx Diltiazem [Cardizem] 30 mg PO BID #60 tablet 03/05/17 Unknown Rx Fluticasone [Flonase] 1 spray NS QDAY #1 bottle 03/05/17 Unknown Rx Hydrochlorothiazide [HCTZ] 25 mg PO QDAY #30 tablet 03/05/17 Unknown Rx Insulin Regular, Human [HumuLIN R] 0 units SUB-Q Q6HR #1 vial 03/05/17 Unknown Rx Lisinopril [Zestril TAB] 20 mg PO QDAY #30 tablet 03/05/17 Unknown Rx Nicotine [Habitrol] 21 mg TD QDAY #30 patch 03/05/17 Unknown Rx metFORMIN [Glucophage] 500 mg PO QDAY #30 tab 03/05/17 Unknown Rx Active Meds: Active Medications Acetaminophen (Tylenol) 650 mg PO Q4H PRN PRN Reason: Pain MILD(1-3)/Fever >100.5/URIOSTEGUI Atorvastatin Calcium (Lipitor) 20 mg PO QHS [facility] Last Admin: 03/04/17 22:30 Dose: Not Given Bisacodyl (Dulcolax) 10 mg OK QDAY PRN PRN Reason: Constipation unrelieved by MOM Dextrose (D50w (25gm) Syringe) 50 ml IV PRN PRN PRN Reason: Hypoglycemia Diltiazem HCl (Cardizem) 30 mg PO BID [facility] Last Admin: 03/05/17 09:17 Dose: 30 mg Doxycycline Hyclate (Vibramycin) 100 mg PO DAILY [facility] Last Admin: 03/05/17 09:17 Dose: 100 mg Enoxaparin Sodium (Lovenox) 40 mg SUB-Q QDAY [facility] Last Admin: 03/05/17 09:17 Dose: 40 mg Fluticasone Propionate (Flonase) 50 mcg NS QDAY [facility] Last Admin: 03/05/17 09:18 Dose: Not Given Hydrochlorothiazide (Hctz) 25 mg PO QDAY [facility] Last Admin: 03/05/17 09:16 Dose: 25 mg Sodium Chloride (Nacl 0.9% 1000 Ml) 1,000 mls @ 100 mls/hr IV DIRECT [facility] Insulin Aspart (Novolog) 0 units SUB-Q ACHS [facility] PRN Reason: Protocol Last Admin: 03/05/17 11:11 Dose: 3 units Lisinopril (Zestril) 20 mg PO QDAY [facility] Last Admin: 03/05/17 09:18 Dose: 20 mg Lorazepam (Ativan) 1 mg PO Q8H PRN PRN Reason: Agitation Last Admin: 03/05/17 06:01 Dose: 1 mg Magnesium Hydroxide (Milk Of Magnesia) 30 ml PO Q4H PRN PRN Reason: Constipation Nicotine (Habitrol) 21 mg TD QDAY [facility] Last Admin: 03/05/17 09:18 Dose: 21 mg Ondansetron HCl (Zofran) 4 mg IV Q8H PRN PRN Reason: N/V unrelieved by Reglan Oxycodone/Acetaminophen (Percocet 5/325) 1 tab PO Q6H PRN PRN Reason: Pain, Moderate (4-6) Last Admin: 03/05/17 12:29 Dose: 1 tab Zolpidem Tartrate (Ambien) 10 mg PO QHS PRN PRN Reason: Insomnia Last Admin: 03/05/17 02:00 Dose: 10 mg Past psychiatric history - Past Medical History Past Medical History: diabetes, hypertension Past Surgical History: Other (Back Surgery) - past Psychiatric treatment and history psychiatric treatment history: Patient stated a hx of anxiety. Denies a fam psy hx. - Social History Social history: lives with family Mental Status Exam - Vital signs Last Vital Signs Temp 98.3 F 03/05/17 15:47 Pulse 64 03/05/17 10:00 Resp 20 03/05/17 15:47 BP 119/77 03/05/17 15:47 Pulse Ox 98 03/05/17 10:18 - Exam Narrative exam: MSE: Appearance: calm, cooperative Behavior: regular eye contact Speech: regular rate and tone Mood: "better" Affect: euthymic Thought Process: linear Thought Content: denies SI/HI's and AVH's Motor Activity: ambulatory Cognition: A/O x 3 Insight: fair Judgment: fair Results Result Diagrams: 03/05/17 05:53 03/05/17 05:53 Abnormal lab results 03/04/17 03/04/17 03/05/17 Range/Units 16:49 22:50 05:53 [place] % (Auto) 8.2 H (0.0-7.3) % Glucose (75-100) mg/dL POC Glucose 171 H 146 H (70-105) 03/05/17 03/05/17 03/05/17 Range/Units 05:53 08:59 12:27 [place] % (Auto) (0.0-7.3) % Glucose 138 H (75-100) mg/dL POC Glucose 186 H 161 H (70-105) All other labs normal. Assessment and Plan Assessment and plan: Impression: Historical Dx: Anxiety DO. 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 Substance Use DO (cocaine). Possible Alcohol Use DO. Today patient is calm and cooperative during the assessment. Patient is no threat to self. DDx: R/O Mood DO Recommendation/Plan: Rescind 1013. Patient given outpatient rehab services for [facility]. Patient stated that his PCP manage his Anxiety DO along with medication management. Discussed the importance to abstain from recreational drug use and excessive alcohol consumption.
== END 2017-03-05 17:48 | disposition home or self-care (01) | DRG 206 ==
LOC: ED 21:32 → 4A 23:50
PROVIDERS: ADMIT Internal Medicine; ATTEND Internal Medicine
PROC: 3E0234Z Introduction of Serum, Toxoid and Vaccine into Muscle, Percutaneous Approach (ICD-10-PCS; principal; 2017-03-03)
DX: M94.0 Chondrocostal junction syndrome [Tietze] (principal); I47.1 Supraventricular tachycardia; I24.9 Acute ischemic heart disease, unspecified; R61 Generalized hyperhidrosis; E11.9 Type 2 diabetes mellitus without complications; I10 Essential (primary) hypertension; F32.9 Major depressive disorder, single episode, unspecified; F41.9 Anxiety disorder, unspecified; F17.210 Nicotine dependence, cigarettes, uncomplicated; F12.90 Cannabis use, unspecified, uncomplicated; E78.5 Hyperlipidemia, unspecified; F14.10 Cocaine abuse, uncomplicated; Z83.3 Family history of diabetes mellitus; Z79.4 Long term (current) use of insulin; Z79.899 Other long term (current) drug therapy; Z23 Encounter for immunization
CPT/HCPCS: 36415; 71010; 80048; 80053; 80307; 81001; 82550; 82553; 82962; 83735; 84439; 84443; 84484; 85025; 85610; 85730; 90686; 90732; 93005; 93010; 93306; 96374; 96376; 99406; A9270-GY; J1650; J2060; J7030

== ENCOUNTER 2017-04-14 10:02 | Emergency (ER) | payer MEDICARE ==
[2017-04-14 10:29] VITALS: BP 147/96
[2017-04-14] MEDS ORDERED: TORADOL IM ONE (11:40)
--- NOTE | 2017-04-14 11:51 | Emergency Department Report ---
ED Recheck HPI - General Chief Complaint: Medical Clearance Stated Complaint: NEEDS MEDICATION, HIGH BLOOD SUGAR Time Seen by Provider: 04/14/17 11:25 Source: patient Mode of arrival: Ambulatory Limitations: No Limitations - History of Present Illness Initial Comments: This is a 51-year-old male nontoxic, well nourished in appearance, no acute signs of distress presents to the ED with c/o of for medication refill and chronic intermittent back pain. Patient states he takes Lantus on a sliding scale. Patient denies any trauma to his back. Patient stated this is a chronic condition and stated "Morphine shots" is what helps him. Patient denies dysuria , polyuria, bladder or bowel instability, hematuria, fever, chills, headache, nausea, vomiting, chest pain, abdominal pain, shortness of breathe. Patient describes pain as aching with level of 8/10. Patient denies any numbness or tingling. Alex any allergies. PMH includes DM, GERD, and HTN. MD Complaint: medication refill request, other (back pain) -: year(s) Returns Today for: request for prescription Symptoms Since Prior Visit: no new symptoms Associated Symptoms: none. denies: fever, chills, chest pain, shortness of breath, rash, malaise, nasuea, abdominal pain - Related Data Previous Rx's Medication Instructions Recorded Last Taken Type AtorvaSTATin [Lipitor] 20 mg PO QHS #30 tablet 03/05/17 Unknown Rx Diltiazem [Cardizem] 30 mg PO BID #60 tablet 03/05/17 Unknown Rx Fluticasone [Flonase] 1 spray NS QDAY #1 bottle 03/05/17 Unknown Rx Hydrochlorothiazide [HCTZ] 25 mg PO QDAY #30 tablet 03/05/17 Unknown Rx Insulin Regular, Human [HumuLIN R] 0 units SUB-Q Q6HR #1 vial 03/05/17 Unknown Rx Lisinopril [Zestril TAB] 20 mg PO QDAY #30 tablet 03/05/17 Unknown Rx Nicotine [Habitrol] 21 mg TD QDAY #30 patch 03/05/17 Unknown Rx metFORMIN [Glucophage] 500 mg PO QDAY #30 tab 03/05/17 Unknown Rx Cyclobenzaprine [Flexeril] 10 mg PO BID PRN #10 tablet 04/14/17 Unknown Rx Ibuprofen [Motrin] 600 mg PO Q8H PRN #30 tablet 04/14/17 Unknown Rx Insulin Glargine [Lantus] 0 units SQ QHS #1 vial 04/14/17 Unknown Rx Allergies Allergy/AdvReac Type Severity Reaction Status Date / Time No Known Allergies Allergy Unverified 03/03/17 21:44 ED Review of Systems ROS: Stated complaint: NEEDS MEDICATION, HIGH BLOOD SUGAR Other details as noted in HPI Constitutional: denies: chills, fever Eyes: denies: eye pain, eye discharge, vision change ENT: denies: ear pain, throat pain Respiratory: denies: cough, shortness of breath, wheezing Cardiovascular: denies: chest pain, palpitations Endocrine: no symptoms reported Gastrointestinal: denies: abdominal pain, nausea, diarrhea Genitourinary: denies: urgency, dysuria Musculoskeletal: back pain. denies: joint swelling, arthralgia Skin: denies: rash, lesions Neurological: denies: headache, weakness, paresthesias Psychiatric: denies: anxiety, depression Hematological/Lymphatic: denies: easy bleeding, easy bruising ED Past Medical Hx - Past Medical History Previous Medical History?: Yes Hx Hypertension: Yes Hx Diabetes: Yes Hx GERD: Yes Additional medical history: Anxiety. Depression. Self Harm - Surgical History Past Surgical History?: Yes Additional Surgical History: stimulator lower back - Social History Smoking Status: Current Every Day Smoker Substance Use Type: Alcohol, Prescribed - Medications Home Medications: Home Medications Medication Instructions Recorded Confirmed Last Taken Type AtorvaSTATin [Lipitor] 20 mg PO QHS #30 tablet 03/05/17 Unknown Rx Diltiazem [Cardizem] 30 mg PO BID #60 tablet 03/05/17 Unknown Rx Fluticasone [Flonase] 1 spray NS QDAY #1 bottle 03/05/17 Unknown Rx Hydrochlorothiazide [HCTZ] 25 mg PO QDAY #30 tablet 03/05/17 Unknown Rx Insulin Regular, Human [HumuLIN R] 0 units SUB-Q Q6HR #1 vial 03/05/17 Unknown Rx Lisinopril [Zestril TAB] 20 mg PO QDAY #30 tablet 03/05/17 Unknown Rx Nicotine [Habitrol] 21 mg TD QDAY #30 patch 03/05/17 Unknown Rx metFORMIN [Glucophage] 500 mg PO QDAY #30 tab 03/05/17 Unknown Rx Cyclobenzaprine [Flexeril] 10 mg PO BID PRN #10 tablet 04/14/17 Unknown Rx Ibuprofen [Motrin] 600 mg PO Q8H PRN #30 tablet 04/14/17 Unknown Rx Insulin Glargine [Lantus] 0 units SQ QHS #1 vial 04/14/17 Unknown Rx ED Physical Exam - General Limitations: No Limitations General appearance: alert, in no apparent distress - Head Head exam: Present: atraumatic, normocephalic, normal inspection - Eye Eye exam: Present: normal appearance, PERRL, EOMI. Absent: scleral icterus, conjunctival injection, nystagmus, periorbital swelling, periorbital tenderness Pupils: Present: normal accommodation - ENT ENT exam: Present: normal exam, normal orophraynx, mucous membranes moist, TM's normal bilaterally, normal external ear exam - Neck Neck exam: Present: normal inspection, full ROM. Absent: tenderness, meningismus, lymphadenopathy, thyromegaly - Respiratory Respiratory exam: Present: normal lung sounds bilaterally. Absent: respiratory distress, wheezes, rales, rhonchi, stridor, chest wall tenderness, accessory muscle use, decreased breath sounds, prolonged expiratory - Cardiovascular Cardiovascular Exam: Present: regular rate, normal rhythm, normal heart sounds. Absent: bradycardia, tachycardia, irregular rhythm, systolic murmur, diastolic murmur, rubs, gallop - GI/Abdominal GI/Abdominal exam: Present: soft, normal bowel sounds. Absent: distended, tenderness, guarding, rebound, rigid, diminished bowel sounds - Rectal Rectal exam: Present: deferred - Extremities Exam Extremities exam: Present: normal inspection, full ROM, normal capillary refill. Absent: tenderness, pedal edema, joint swelling, calf tenderness - Back Exam Back exam: Present: normal inspection, full ROM, paraspinal tenderness (lumabr region). Absent: tenderness, CVA tenderness (R), CVA tenderness (L), muscle spasm, vertebral tenderness, rash noted - Expanded Back Exam Expanded Back exam: Present: normal rectal tone (as per patient). Absent: saddle anesthesia Back exam: Negative Straight Leg Raising: Left, Right - Neurological Exam Neurological exam: Present: alert, oriented X3, CN II-XII intact, normal gait, reflexes normal - Psychiatric Psychiatric exam: Present: normal affect, normal mood - Skin Skin exam: Present: warm, dry, intact, normal color. Absent: rash ED Course Vital Signs 04/14/17 10:24 Temperature 97.7 F Pulse Rate 68 Respiratory 18 Rate Blood Pressure 147/96 O2 Sat by Pulse 98 Oximetry - Reevaluation(s) Reevaluation #1: 04/14/17 11:54 Patient is speaking in full sentences with no signs of distress noted. Reevaluation #2: 04/14/17 12:33 Patient stated back pain symptoms has improved and subsiding. Reevaluation #3: 04/14/17 12:33 Patient stated he just wants his prescriptions and sign AMA because he is in [place] for ETOH abuse and they are surving food till 1 pm. I instructed and educated patients the importance of waiting for the lab results for d/c but patient still stated he wants to sign AMA. ED Recheck MDM - Medical Decision Making This is a 51-year-old male that presents with Lantus refill. Patient is stable and was examined by me. CBC, BMP, UA, and CK obtained. Patient is argumentative and is requesting for morphine shot. I explained to the patient that patient is alone and is driving alone and it is unsafe for me to prescribe him morphine in the ED due to drowsiness. Instead patient received a Toradol IM with patient that his symptoms has improved and her subsided. Patient is Flexeril does help his back so patient be treated with Motrin and Flexeril and discharged. Patient received a prescription for Lantus refill. Patient was instructed to Follow-up with a primary care doctor in 3-5 days or if symptoms worsen and continue return to emergency room as soon as possible. Patient stated he just wants his prescrpitions and sign AMA because he is in [place] for ETOH abuse and they are surving food till 1 pm. I instructed and educated patients the importance of waiting for the lab results for d/c but patient still stated he wants to sign AMA. At time time of AMA, the patient does not seem toxic or ill in appearance. No acute signs of distress noted. No further questions noted by the patient. Critical care attestation.: If time is entered above; I have spent that time in minutes in the direct care of this critically ill patient, excluding procedure time. ED Disposition Clinical Impression: Medication refill Diabetes Qualifiers: Diabetes mellitus type: other specified (including ANGE) Diabetes mellitus complication status: with unspecified complications Diabetes mellitus supervisor intermediates insulin use: unspecified supervisor intermediates insulin use status Qualified Code(s): E13.8 - Other specified diabetes mellitus with unspecified complications Chronic back pain Qualifiers: Back pain location: low back pain Back pain laterality: unspecified Sciatica presence: unspecified whether sciatica present Qualified Code(s): M54.5 - Low back pain Disposition: - LEFT AGAINST MED ADVICE Is pt being admited?: No Does the pt Need Aspirin: No Condition: Stable Instructions: Ibuprofen (By mouth), Cyclobenzaprine (By mouth), Insulin Glargine (Injection), Diabetes Mellitus Type 2 in Adults (ED) Additional Instructions: Follow-up with your primary care doctor in 3-5 days or if symptoms worsen such as bladder or bowel stability, chest pain, short of breath, numbness or tingling sensation in extremities, headache, dizziness, visual changes, nausea vomiting, or abdominal pain, return back to emergency room as was possible. Take ibuprofen and Flexeril as prescribed. Do not operate heavy machinery while taking Flexeril due to sedation Prescriptions: Insulin Glargine [Lantus] 0 units SQ QHS #1 vial Cyclobenzaprine [Flexeril] 10 mg PO BID PRN #10 tablet PRN Reason: Muscle Spasm Ibuprofen [Motrin] 600 mg PO Q8H PRN #30 tablet PRN Reason: Pain Referrals: PRIMARY MD ABHI [Primary Care Provider] - 3-5 Days LEXI DOUGLAS MD [Staff Physician] - 3-5 Days [facility] [Outside] - 3-5 Days [facility] [Outside] - 3-5 Days Forms: Work/School Release Form(ED)
[2017-04-14 12:08] LABS: Basophils % (Auto) 0.6 % (0.0-1.8); Eosinophils % (Auto) 1.4 % (0.0-4.3); Hematocrit 39.3 % (35.5-45.6); Hemoglobin 13.1 gm/dl (11.8-15.2); Mean Corpuscular HGB Conc 33 % (32-34); Mean Corpuscular Hemoglobin 30 pg (28-32); Mean Corpuscular Volume 89 fl (84-94); Platelet Count 208 K/mm3 (140-440); Red Blood Count 4.41 M/mm3 (3.65-5.03); Red Cell Distribution Width 13.7 % (13.2-15.2); White Blood Count 8.3 K/mm3 (4.5-11.0)
[2017-04-14 12:20] LABS: Anion Gap 15 mmol/L; BUN/Creatinine Ratio 24; Blood Urea Nitrogen 22 mg/dL (9-20); Carbon Dioxide 28 mmol/L (22-30); Chloride 100.1 mmol/L (98-107); Glucose 247 mg/dL (75-100); Sodium 138 mmol/L (137-145)
[2017-04-14 12:29] LABS: Bilirubin,Urine NEG (Negative); Blood,Urine NEG (Negative); Ketones,Urine NEG (Negative); Leukocyte Esterase,Urine NEG (Negative); Nitrite,Urine NEG (Negative); Protein,Urine <15 mg/dL mg/dL (Negative); WBC,Urine < 1.0 /HPF (0.0-6.0)
== END 2017-04-14 12:57 | disposition left against medical advice (07) ==
LOC: ED 10:02
DX: Z76.0 Encounter for issue of repeat prescription (principal); M54.5 Low back pain; G89.29 Other chronic pain; E13.8 Other specified diabetes mellitus with unspecified complications; I10 Essential (primary) hypertension; K21.9 Gastro-esophageal reflux disease without esophagitis; F17.200 Nicotine dependence, unspecified, uncomplicated
CPT/HCPCS: 36415; 80048; 81001; 82550; 82962; 85025; 96372; 99283; J1885

== ENCOUNTER 2017-04-16 21:08 | Emergency (ER) | payer MEDICARE ==
[2017-04-16 22:19] LABS: Basophils % (Auto) 0.7 % (0.0-1.8); Hematocrit 41.4 % (35.5-45.6); Hemoglobin 13.5 gm/dl (11.8-15.2); Mean Corpuscular HGB Conc 33 % (32-34); Mean Corpuscular Hemoglobin 30 pg (28-32); Mean Corpuscular Volume 91 fl (84-94); Platelet Count 236 K/mm3 (140-440); Red Blood Count 4.57 M/mm3 (3.65-5.03); Red Cell Distribution Width 14.2 % (13.2-15.2); White Blood Count 8.5 K/mm3 (4.5-11.0)
[2017-04-16 22:20] LABS: Anion Gap 17 mmol/L; BUN/Creatinine Ratio 15; Blood Urea Nitrogen 17 mg/dL (9-20); Calcium 9.2 mg/dL (8.4-10.2); Carbon Dioxide 28 mmol/L (22-30); Chloride 100.7 mmol/L (98-107); Glucose 284 mg/dL (75-100); Potassium 5.2 mmol/L (3.6-5.0); Sodium 140 mmol/L (137-145)
[2017-04-17 01:23] LABS: Bilirubin,Urine NEG (Negative); Blood,Urine NEG (Negative); Ketones,Urine NEG (Negative); Leukocyte Esterase,Urine NEG (Negative); Nitrite,Urine NEG (Negative); Protein,Urine <15 mg/dL mg/dL (Negative); WBC,Urine < 1.0 /HPF (0.0-6.0)
[2017-04-17] MEDS ORDERED: DILAUDID IV ONE (02:18)
--- NOTE | 2017-04-17 02:31 | Emergency Department Report ---
HPI - General Chief Complaint: Hyperglycemia Time Seen by Provider: 04/17/17 02:06 - HPI HPI: This is a 51-year-old male who presents to the emergency department with complaint of elevated blood sugar and lower extremity swelling. He has insulin-dependent diabetes and says that he is compliant with his blood sugar rechecked earlier today and says that it was greater than 500. He also is concerned with some elevated blood pressure and says that he is compliant with his enalapril and hydrochlorothiazide. He has a primary care physician but has not seen him regarding his symptoms. He has been having some gradually worsening lower extremity swelling over the past few days. He believes it is secondary to the fact that he has been walking around more often than usual as he usually uses a power scooter. He denies any chest pain, shortness of breath, nausea, vomiting or diaphoresis. He also has a history of GERD, hypertension. The patient does complain of some pain in the legs that radiate up towards the hips. He has a history of chronic back pains and does have a stimulator in his lower back. No recent travel or sick contacts at home. ED Past Medical Hx - Past Medical History Hx Hypertension: Yes Hx Diabetes: Yes Hx GERD: Yes Additional medical history: Anxiety. Depression. Self Harm - Surgical History Additional Surgical History: stimulator lower back - Social History Smoking Status: Never Smoker Substance Use Type: None - Medications Home Medications: Home Medications Medication Instructions Recorded Confirmed Last Taken Type AtorvaSTATin [Lipitor] 20 mg PO QHS #30 tablet 03/05/17 Unknown Rx Diltiazem [Cardizem] 30 mg PO BID #60 tablet 03/05/17 Unknown Rx Fluticasone [Flonase] 1 spray NS QDAY #1 bottle 03/05/17 Unknown Rx Hydrochlorothiazide [HCTZ] 25 mg PO QDAY #30 tablet 03/05/17 Unknown Rx Insulin Regular, Human [HumuLIN R] 0 units SUB-Q Q6HR #1 vial 03/05/17 Unknown Rx Lisinopril [Zestril TAB] 20 mg PO QDAY #30 tablet 03/05/17 Unknown Rx Nicotine [Habitrol] 21 mg TD QDAY #30 patch 03/05/17 Unknown Rx metFORMIN [Glucophage] 500 mg PO QDAY #30 tab 03/05/17 Unknown Rx Cyclobenzaprine [Flexeril] 10 mg PO BID PRN #10 tablet 04/14/17 Unknown Rx Ibuprofen [Motrin] 600 mg PO Q8H PRN #30 tablet 04/14/17 Unknown Rx Insulin Glargine [Lantus] 0 units SQ QHS #1 vial 04/14/17 Unknown Rx Furosemide [Lasix] 20 mg PO QDAY #5 tablet 04/17/17 Unknown Rx ED Review of Systems ROS: Stated complaint: HIGH GBL Other details as noted in HPI Comment: All other systems reviewed and negative Constitutional: denies: chills, fever Eyes: denies: eye pain, eye discharge, vision change ENT: denies: ear pain, throat pain Respiratory: denies: cough, shortness of breath, wheezing Cardiovascular: edema. denies: chest pain Gastrointestinal: denies: abdominal pain, nausea, diarrhea Genitourinary: denies: urgency, dysuria Musculoskeletal: joint swelling, arthralgia Skin: denies: rash, lesions Neurological: denies: headache, numbness Physical Exam - Physical Exam Vital Signs: Vital Signs 04/16/17 04/17/17 21:28 00:04 Temperature 98.5 F 98.6 F Pulse Rate 68 65 Respiratory 18 18 Rate Blood Pressure 167/89 154/95 O2 Sat by Pulse 97 96 Oximetry Physical Exam: GENERAL: The patient is well-developed well-nourished. HENT: Normocephalic. Atraumatic. Patient has moist mucous membranes. EYES: Extraocular motions are intact. Pupils equal reactive to light bilaterally. NECK: Supple. Trachea is midline. CHEST/LUNGS: Clear to auscultation. There is no respiratory distress noted. HEART/CARDIOVASCULAR: Regular. There is no tachycardia. There is no gallop rub or murmur. ABDOMEN: Abdomen is soft, nontender. Patient has normal bowel sounds. There is no abdominal distention. SKIN: Skin is warm and dry. There is 1-2+ pitting edema to the bilateral lower extremity. NEURO: The patient is awake, alert, and oriented. The patient is cooperative. The patient has no focal neurologic deficits. The patient has normal speech and gait. Cranial nerves II-12 grossly intact. MUSCULOSKELETAL: There is no tenderness or deformity. There is no limitation range of motion. There is no evidence of acute injury. ED Course Vital Signs 04/16/17 04/17/17 21:28 00:04 Temperature 98.5 F 98.6 F Pulse Rate 68 65 Respiratory 18 18 Rate Blood Pressure 167/89 154/95 O2 Sat by Pulse 97 96 Oximetry ED Medical Decision Making - Lab Data Result diagrams: 04/16/17 21:43 04/16/17 21:43 - Medical Decision Making The patient presented for complaint of hyperglycemia, hypertension and lower extremity swelling. His blood sugar came down without any insulin or any treatments. There is no elevated anion gap and he has low suspicion for diabetic ketoacidosis. His blood pressure came down to a more reasonable level as well without any antihypertensive given here. He was given a dose of pain medication and eventually he was anxiety so he was given a low dose of a Xanax. His labs showed some mild hyperkalemia so Kayexalate was given. He did have an elevated BNP of about 750 but he does not have any coarse breath sounds or complaints of shortness of breath. He will be placed on a 5 day course of Lasix to start some diuresis. We discussed dietary and lifestyle changes to help with blood pressure and his blood sugar. He is to follow-up with his primary care doctor in the next few days. He will return to the ER with any worsening of his symptoms or any acute distress. Discharge instructions given while in the emergency department and all questions have been answered. Since the patient has some lower extremity discomfort and swelling, he will be set up for Doppler ultrasounds of the bilateral lower extremities tomorrow to rule out DVT. If positive, he will be redirected to the emergency department. If negative, he will continue with the plan. - Differential Diagnosis DKA, HHN K, pneumonia, venous stasis, DVT Critical Care Time: No Critical care attestation.: If time is entered above; I have spent that time in minutes in the direct care of this critically ill patient, excluding procedure time. ED Disposition Clinical Impression: Lower extremity edema, Hyperglycemia Hypertension Qualifiers: Hypertension type: essential hypertension Qualified Code(s): I10 - Essential ( primary) hypertension Disposition: DC-01 TO HOME OR SELFCARE Is pt being admited?: No Condition: Stable Instructions: Leg Edema (ED), Hypertension (ED), Diabetic Hyperglycemia (ED) Additional Instructions: You will be contacted regarding getting a lower extremity ultrasound done tomorrow to rule out a blood clot as the source of your leg swelling. If positive, he will be redirected to the emergency department. If negative, you are encouraged to follow up with your primary care doctor on Wednesday as we previously discussed. Return to the emergency Department with any worsening of your symptoms or any acute distress. Try and stay away from foods that are high in salt and caffeinated products to help with your blood pressure. Daily blood pressure log. Try and stay away from foods that are high in sugar, carbohydrates and starches to help with your blood sugar. Keep a blood sugar log. Prescriptions: Furosemide [Lasix] 20 mg PO QDAY #5 tablet Referrals: PRIMARY CARE, [Primary Care Provider] - [facility] Time of Disposition: 03:52
[2017-04-17] MEDS ORDERED: XANAX PO ONE (03:19)
[2017-04-17] MEDS ORDERED: KIONEX PO ONE (03:21)
[2017-04-17] MEDS ORDERED: LASIX IV ONE (03:50)
[2017-04-17 04:27] VITALS: BP 157/89
== END 2017-04-17 04:24 | disposition home or self-care (01) ==
LOC: ED 21:08
DX: I10 Essential (primary) hypertension (principal); E11.65 Type 2 diabetes mellitus with hyperglycemia; K21.9 Gastro-esophageal reflux disease without esophagitis; Z79.4 Long term (current) use of insulin
CPT/HCPCS: 36415; 80048; 81001; 82805; 82962; 83880; 85025; 96374; 96375; 99284; J1170; J1940

== ENCOUNTER 2017-04-17 13:52 | Outpatient (CLI) | payer MEDICARE ==
--- NOTE | 2017-04-18 14:22 | Vascular Lab Report ---
LOWER EXTREMITY VENOUS DUPLEX: REASON FOR EXAM: Pain of the lower extremities. COMMENTS ON THE RIGHT: All veins visualized are freely compressible without evidence of internal echogenicity. Flow is spontaneous and phasic throughout. COMMENTS ON THE LEFT: All veins visualized are freely compressible without evidence of internal echogenicity. Flow is spontaneous and phasic throughout. IMPRESSION: No evidence of acute or chronic deep venous thrombosis in either lower extremity.
== END 2017-04-17 13:53 | disposition home or self-care (01) ==
LOC: VAS 13:52
PROVIDERS: ATTEND Emergency Medicine
DX: M79.661 Pain in right lower leg (principal); M79.662 Pain in left lower leg; R60.0 Localized edema; I10 Essential (primary) hypertension; E11.9 Type 2 diabetes mellitus without complications; F14.10 Cocaine abuse, uncomplicated
CPT/HCPCS: 93970

== ENCOUNTER 2017-04-21 19:19 | Emergency (ER) | payer MEDICARE ==
[2017-04-22] MEDS ORDERED: TORADOL IM ONE (02:21)
--- NOTE | 2017-04-22 02:25 | Emergency Department Report ---
ED Extremity Problem HPI - General Chief complaint: Extremity Problem,Nontraumatic Stated complaint: BACK/BILATERAL LEG PAIN Time Seen by Provider: 04/22/17 02:00 Source: patient Mode of arrival: Ambulatory Limitations: No Limitations - History of Present Illness MD Complaint: extremity pain (both thighs), joint paint -: Gradual, days(s) (1 day) Location: lower extremity, bilateral lower extremity History of Same: Yes -: Yes myalgia, Yes arthralgia Radiation: none (both thighs, including knees.) Severity scale (0 -10): 7 Consistency: constant Improves with: rest Worsens with: walking Associated Symptoms: denies other symptoms - Related Data Previous Rx's Medication Instructions Recorded Last Taken Type AtorvaSTATin [Lipitor] 20 mg PO QHS #30 tablet 03/05/17 Unknown Rx Diltiazem [Cardizem] 30 mg PO BID #60 tablet 03/05/17 Unknown Rx Fluticasone [Flonase] 1 spray NS QDAY #1 bottle 03/05/17 Unknown Rx Hydrochlorothiazide [HCTZ] 25 mg PO QDAY #30 tablet 03/05/17 Unknown Rx Insulin Regular, Human [HumuLIN R] 0 units SUB-Q Q6HR #1 vial 03/05/17 Unknown Rx Lisinopril [Zestril TAB] 20 mg PO QDAY #30 tablet 03/05/17 Unknown Rx Nicotine [Habitrol] 21 mg TD QDAY #30 patch 03/05/17 Unknown Rx metFORMIN [Glucophage] 500 mg PO QDAY #30 tab 03/05/17 Unknown Rx Cyclobenzaprine [Flexeril] 10 mg PO BID PRN #10 tablet 04/14/17 Unknown Rx Ibuprofen [Motrin] 600 mg PO Q8H PRN #30 tablet 04/14/17 Unknown Rx Insulin Glargine [Lantus] 0 units SQ QHS #1 vial 04/14/17 Unknown Rx Furosemide [Lasix] 20 mg PO QDAY #5 tablet 04/17/17 Unknown Rx traMADol [Ultram 50 MG tab] 50 mg PO Q6HR PRN #16 tablet 04/22/17 Unknown Rx Allergies Allergy/AdvReac Type Severity Reaction Status Date / Time No Known Allergies Allergy Unverified 03/03/17 21:44 ED Review of Systems ROS: Stated complaint: BACK/BILATERAL LEG PAIN Other details as noted in HPI Constitutional: denies: chills, fever Eyes: denies: eye pain, eye discharge, vision change ENT: denies: ear pain, throat pain Respiratory: denies: cough, shortness of breath, wheezing Cardiovascular: denies: chest pain, palpitations Endocrine: no symptoms reported Gastrointestinal: denies: abdominal pain, nausea, diarrhea Genitourinary: denies: urgency, dysuria Musculoskeletal: as per HPI, arthralgia, myalgia. denies: back pain, joint swelling Skin: denies: rash, lesions Neurological: denies: headache, weakness, paresthesias Psychiatric: denies: anxiety, depression Hematological/Lymphatic: denies: easy bleeding, easy bruising ED Past Medical Hx - Past Medical History Previous Medical History?: Yes Hx Hypertension: Yes Hx Diabetes: Yes Hx GERD: Yes Additional medical history: Anxiety. Depression. Self Harm - Surgical History Past Surgical History?: Yes Additional Surgical History: stimulator lower back - Social History Smoking Status: Current Every Day Smoker Substance Use Type: None - Medications Home Medications: Home Medications Medication Instructions Recorded Confirmed Last Taken Type AtorvaSTATin [Lipitor] 20 mg PO QHS #30 tablet 03/05/17 Unknown Rx Diltiazem [Cardizem] 30 mg PO BID #60 tablet 03/05/17 Unknown Rx Fluticasone [Flonase] 1 spray NS QDAY #1 bottle 03/05/17 Unknown Rx Hydrochlorothiazide [HCTZ] 25 mg PO QDAY #30 tablet 03/05/17 Unknown Rx Insulin Regular, Human [HumuLIN R] 0 units SUB-Q Q6HR #1 vial 03/05/17 Unknown Rx Lisinopril [Zestril TAB] 20 mg PO QDAY #30 tablet 03/05/17 Unknown Rx Nicotine [Habitrol] 21 mg TD QDAY #30 patch 03/05/17 Unknown Rx metFORMIN [Glucophage] 500 mg PO QDAY #30 tab 03/05/17 Unknown Rx Cyclobenzaprine [Flexeril] 10 mg PO BID PRN #10 tablet 04/14/17 Unknown Rx Ibuprofen [Motrin] 600 mg PO Q8H PRN #30 tablet 04/14/17 Unknown Rx Insulin Glargine [Lantus] 0 units SQ QHS #1 vial 04/14/17 Unknown Rx Furosemide [Lasix] 20 mg PO QDAY #5 tablet 04/17/17 Unknown Rx traMADol [Ultram 50 MG tab] 50 mg PO Q6HR PRN #16 tablet 04/22/17 Unknown Rx ED Physical Exam - General Limitations: No Limitations General appearance: alert, in no apparent distress - Head Head exam: Present: atraumatic, normocephalic - Eye Eye exam: Present: normal appearance - ENT ENT exam: Present: mucous membranes moist - Neck Neck exam: Present: normal inspection - Respiratory Respiratory exam: Present: normal lung sounds bilaterally. Absent: respiratory distress - Cardiovascular Cardiovascular Exam: Present: regular rate, normal rhythm. Absent: systolic murmur, diastolic murmur, rubs, gallop - GI/Abdominal GI/Abdominal exam: Present: soft, normal bowel sounds - Rectal Rectal exam: Present: deferred - Extremities Exam Extremities exam: Present: normal inspection - Back Exam Back exam: Present: normal inspection - Neurological Exam Neurological exam: Present: alert, oriented X3 - Psychiatric Psychiatric exam: Present: normal affect, normal mood - Skin Skin exam: Present: warm, dry, intact, normal color. Absent: rash ED Course Vital Signs 04/21/17 20:55 Temperature 98.2 F Pulse Rate 82 Respiratory 18 Rate Blood Pressure 143/91 [Right] O2 Sat by Pulse 98 Oximetry Critical care attestation.: If time is entered above; I have spent that time in minutes in the direct care of this critically ill patient, excluding procedure time. ED Disposition Clinical Impression: Knee pain, bilateral Qualifiers: Chronicity: unspecified Qualified Code(s): M25.561 - Pain in right knee; M25.562 - Pain in left knee; M25.562 - Pain in left knee Disposition: DC-01 TO HOME OR SELFCARE Is pt being admited?: No Does the pt Need Aspirin: No Condition: Good Prescriptions: traMADol [Ultram 50 MG tab] 50 mg PO Q6HR PRN #16 tablet PRN Reason: Pain Referrals: PRIMARY CARE,MD [Primary Care Provider] - 3-5 Days
[2017-04-22 02:52] VITALS: BP 136/84
== END 2017-04-22 02:45 | disposition home or self-care (01) ==
LOC: ED 19:19
DX: M25.561 Pain in right knee (principal); M25.562 Pain in left knee; I10 Essential (primary) hypertension; E11.9 Type 2 diabetes mellitus without complications; K21.9 Gastro-esophageal reflux disease without esophagitis
CPT/HCPCS: 96372; 99282; J1885

== ENCOUNTER 2017-05-04 13:12 | Emergency (ER) | payer MEDICARE ==
[2017-05-04 13:56] VITALS: BP 159/97
[2017-05-04] MEDS ORDERED: FLEXERIL PO ONE (17:29)
[2017-05-04] MEDS ORDERED: TORADOL IM ONE (17:29)
--- NOTE | 2017-05-04 17:30 | Emergency Department Report ---
ED Back Pain/Injury HPI - General Chief Complaint: Back Pain/Injury Stated Complaint: BACK/LEG PAIN Time Seen by Provider: 05/04/17 17:29 Source: patient Limitations: No Limitations - History of Present Illness Initial Comments: Patient reports flare-up with chronic back pain that has been ongoing and not relieved with prescribed analgesics given to him in the past from the ED. He admits to seeing a physician in the pain clinic who gives him epidural injections in his back which provides relief, however the last injection only provided temporary relief. Patient walked five minutes to the hospital without any problems MD Complaint: back pain Onset/Timin -: year(s) Similar Symptoms Previously: Yes Place: home Radiation: none Severity: severe Severity scale (0 -10): 10 Quality: aching Consistency: constant Improves With: medication Worsens With: movement Context: unknown Associated Symptoms: denies other symptoms. denies: confusion, weakness, chest pain, numbness, difficulty walking, cough, difficulty urinating, diaphoresis, incontinence, fever/chills, constipation, headaches, abdominal pain, loss of appetite, malaise, nausea/vomiting, rash, seizure, shortness of breath, syncope Treatments Prior to Arrival: NSAIDS (Ultram, Ibuprofen and Flexeril) - Related Data Previous Rx's Medication Instructions Recorded Last Taken Type AtorvaSTATin [Lipitor] 20 mg PO QHS #30 tablet 03/05/17 Unknown Rx Diltiazem [Cardizem] 30 mg PO BID #60 tablet 03/05/17 Unknown Rx Fluticasone [Flonase] 1 spray NS QDAY #1 bottle 03/05/17 Unknown Rx Hydrochlorothiazide [HCTZ] 25 mg PO QDAY #30 tablet 03/05/17 Unknown Rx Insulin Regular, Human [HumuLIN R] 0 units SUB-Q Q6HR #1 vial 03/05/17 Unknown Rx Lisinopril [Zestril TAB] 20 mg PO QDAY #30 tablet 03/05/17 Unknown Rx Nicotine [Habitrol] 21 mg TD QDAY #30 patch 03/05/17 Unknown Rx metFORMIN [Glucophage] 500 mg PO QDAY #30 tab 03/05/17 Unknown Rx Ibuprofen [Motrin] 600 mg PO Q8H PRN #30 tablet 04/14/17 Unknown Rx Insulin Glargine [Lantus] 0 units SQ QHS #1 vial 04/14/17 Unknown Rx Furosemide [Lasix] 20 mg PO QDAY #5 tablet 04/17/17 Unknown Rx Ibuprofen [Motrin] 800 mg PO Q8HR PRN #28 tablet 04/22/17 Unknown Rx traMADol [Ultram 50 MG tab] 50 mg PO Q6HR PRN #16 tablet 04/22/17 Unknown Rx Cyclobenzaprine [Flexeril 10 MG 10 mg PO BID PRN #10 tablet 05/04/17 Unknown Rx TAB] Diclofenac Dr (Nf) 50 mg PO BID #20 tablet. 05/04/17 Unknown Rx Allergies Allergy/AdvReac Type Severity Reaction Status Date / Time No Known Allergies Allergy Unverified 03/03/17 21:44 ED Review of Systems ROS: Stated complaint: BACK/LEG PAIN Other details as noted in HPI Constitutional: denies: chills, diaphoresis, fever, malaise, weakness Eyes: denies: eye pain, eye discharge, vision change ENT: denies: ear pain, throat pain, dental pain, hearing loss, epistaxis, congestion Respiratory: denies: cough, orthopnea, shortness of breath, SOB with exertion, SOB at rest Cardiovascular: denies: chest pain, palpitations, dyspnea on exertion, orthopnea Endocrine: denies: excessive sweating, flushing, intolerance to cold, intolerance to heat Gastrointestinal: denies: abdominal pain, nausea, vomiting, diarrhea, constipation Genitourinary: denies: urgency, dysuria, frequency, hematuria Musculoskeletal: back pain. denies: joint swelling, arthralgia Skin: denies: rash, lesions, change in color, change in hair/nails, pruritus Neurological: denies: headache, weakness, numbness, paresthesias, confusion Psychiatric: denies: anxiety, depression Hematological/Lymphatic: denies: easy bleeding, easy bruising, swollen glands ED Past Medical Hx - Past Medical History Hx Hypertension: Yes Hx Diabetes: Yes Hx GERD: Yes Additional medical history: Anxiety,DJD. Depression. Self Harm - Surgical History Additional Surgical History: stimulator lower back - Social History Smoking Status: Current Every Day Smoker Substance Use Type: None - Medications Home Medications: Home Medications Medication Instructions Recorded Confirmed Last Taken Type AtorvaSTATin [Lipitor] 20 mg PO QHS #30 tablet 03/05/17 Unknown Rx Diltiazem [Cardizem] 30 mg PO BID #60 tablet 03/05/17 Unknown Rx Fluticasone [Flonase] 1 spray NS QDAY #1 bottle 03/05/17 Unknown Rx Hydrochlorothiazide [HCTZ] 25 mg PO QDAY #30 tablet 03/05/17 Unknown Rx Insulin Regular, Human [HumuLIN R] 0 units SUB-Q Q6HR #1 vial 03/05/17 Unknown Rx Lisinopril [Zestril TAB] 20 mg PO QDAY #30 tablet 03/05/17 Unknown Rx Nicotine [Habitrol] 21 mg TD QDAY #30 patch 03/05/17 Unknown Rx metFORMIN [Glucophage] 500 mg PO QDAY #30 tab 03/05/17 Unknown Rx Ibuprofen [Motrin] 600 mg PO Q8H PRN #30 tablet 04/14/17 Unknown Rx Insulin Glargine [Lantus] 0 units SQ QHS #1 vial 04/14/17 Unknown Rx Furosemide [Lasix] 20 mg PO QDAY #5 tablet 04/17/17 Unknown Rx Ibuprofen [Motrin] 800 mg PO Q8HR PRN #28 tablet 04/22/17 Unknown Rx traMADol [Ultram 50 MG tab] 50 mg PO Q6HR PRN #16 tablet 04/22/17 Unknown Rx Cyclobenzaprine [Flexeril 10 MG 10 mg PO BID PRN #10 tablet 05/04/17 Unknown Rx TAB] Diclofenac Dr (Nf) 50 mg PO BID #20 tablet.dr 05/04/17 Unknown Rx ED Physical Exam - General Limitations: No Limitations General appearance: alert, in no apparent distress - Head Head exam: Present: atraumatic, normocephalic, normal inspection - Eye Eye exam: Present: normal appearance Pupils: Present: normal accommodation - ENT ENT exam: Present: normal exam, normal orophraynx, mucous membranes moist. Absent: mucous membranes dry - Neck Neck exam: Present: normal inspection, full ROM. Absent: tenderness, meningismus, lymphadenopathy, thyromegaly - Respiratory Respiratory exam: Present: normal lung sounds bilaterally. Absent: respiratory distress, wheezes, rales, rhonchi, stridor, chest wall tenderness, accessory muscle use, decreased breath sounds, prolonged expiratory - Cardiovascular Cardiovascular Exam: Present: regular rate, normal rhythm, normal heart sounds. Absent: systolic murmur, diastolic murmur, rubs, gallop - Extremities Exam Extremities exam: Present: normal inspection, full ROM, normal capillary refill. Absent: tenderness, pedal edema, joint swelling, calf tenderness - Back Exam Back exam: Present: normal inspection, full ROM, tenderness (midline lumbar). Absent: CVA tenderness (R), CVA tenderness (L), muscle spasm, paraspinal tenderness, vertebral tenderness, rash noted - Neurological Exam Neurological exam: Present: alert, oriented X3, CN II-XII intact, normal gait, reflexes normal, other (no neuro focal deficits). Absent: motor sensory deficit - Psychiatric Psychiatric exam: Present: normal affect, normal mood. Absent: depressed, agitated - Skin Skin exam: Present: warm, dry, intact, normal color. Absent: rash ED Course Vital Signs 05/04/17 05/04/17 13:54 17:45 Temperature 97.9 F Pulse Rate 96 H Respiratory 20 18 Rate Blood Pressure 159/97 O2 Sat by Pulse 100 Oximetry - Reevaluation(s) Reevaluation #1: 05/04/17 18:13 analgesic injection and oral medication ordered ED Medical Decision Making - Lab Data Vital Signs 05/04/17 05/04/17 13:54 17:45 Temperature 97.9 F Pulse Rate 96 H Respiratory 20 18 Rate Blood Pressure 159/97 O2 Sat by Pulse 100 Oximetry - Medical Decision Making During the course of ED, analgesic and medication for muscle spasm were ordered. He reports back pain subsided after medications were given in the ED. Th He was instructed to try Diclofen Sodium since the other NSAIDS did not provide any relief and follow up with his schedules appointment at the pain clinic 05/26/17. He verbalized understanding - Differential Diagnosis Chronic Back Pain, Back Injury Critical care attestation.: If time is entered above; I have spent that time in minutes in the direct care of this critically ill patient, excluding procedure time. ED Disposition Clinical Impression: Chronic back pain Qualifiers: Back pain location: low back pain Back pain laterality: midline Sciatica presence: without sciatica Qualified Code(s): M54.5 - Low back pain Disposition: -01 TO HOME OR SELFCARE Is pt being admited?: No Does the pt Need Aspirin: No Condition: Stable Instructions: Chronic Back Pain (ED) Additional Instructions: Take medication as directed. Follow with scheduled appointment at the pain clinic as discussed. Prescriptions: Cyclobenzaprine [Flexeril 10 MG TAB] 10 mg PO BID PRN #10 tablet PRN Reason: Muscle Spasm Diclofenac (Nf) 50 mg PO BID #20 tablet. Referrals: PRIMARY CARE, [Primary Care Provider] - 3-5 Days ZURI ZAVALA MD [Staff Physician] - 3-5 Days RODNEY ENNIS MD [Staff] - 3-5 Days Forms: Work/School Release Form(ED) Time of Disposition: 18:00
== END 2017-05-04 18:09 | disposition home or self-care (01) ==
LOC: ED 13:12
DX: M54.5 Low back pain (principal); G89.29 Other chronic pain; I10 Essential (primary) hypertension; E11.9 Type 2 diabetes mellitus without complications; K21.9 Gastro-esophageal reflux disease without esophagitis; F17.200 Nicotine dependence, unspecified, uncomplicated; Z79.4 Long term (current) use of insulin; Z98.890 Other specified postprocedural states
CPT/HCPCS: 96372; 99282; J1885